=== PATIENT | female | born 1945 | race Caucasian/White ===

== ENCOUNTER 2020-04-17 16:18 | Observation (INO) | payer MEDICARE, OTHER ==
[~2020-04-17] VITALS: Ht 167.6 cm; Wt 74.4 kg
[2020-04-17 17:20] LABS: BASO % 0 % (0-3); EOS # 0.1 x10^3/uL (0.0-0.7); EOS % 2 % (0-3); HEMATOCRIT 44.9 % (36.0-47.0); HEMOGLOBIN 15.1 g/dL (12.0-15.5); LYMPH # 1.3 x10^3/uL (1.0-4.8); LYMPH % 22 % (24-48); MEAN CORPUSCULAR HEMOGLOBIN 30 pg (25-35); MEAN CORPUSCULAR HGB CONC 34 g/dL (31-37); MEAN CORPUSCULAR VOLUME 88 fL (79-100); MONO # 0.5 x10^3/uL (0.0-1.1); MONO % 9 % (0-9); NEUT % 67 % (31-73); PLATELET COUNT 212 x10^3/uL (140-400); RED BLOOD COUNT 5.08 x10^6/uL (3.50-5.40); RED CELL DISTRIBUTION WIDTH 13.3 % (11.5-14.5)
[2020-04-17 17:29] LABS: CALCIUM 10.4 mg/dL (8.5-10.1); CREATININE 0.6 mg/dL (0.6-1.0); GFR 98.3; POTASSIUM 4.2 mmol/L (3.5-5.1)
[2020-04-17 17:34] LABS: ALBUMIN 4.2 g/dL (3.4-5.0); ALBUMIN/GLOBULIN RATIO 1.3 (1.0-1.7); MAGNESIUM 2.1 mg/dL (1.8-2.4); TOTAL BILIRUBIN 0.4 mg/dL (0.2-1.0); TOTAL PROTEIN 7.4 g/dL (6.4-8.2)
--- NOTE | 2020-04-17 18:02 | RAD ---
Examination: CT HEAD/BRAIN WO History: Reason: near syncope, dizzy / Spl. Instructions: / History: Comparison/Correlation: None Findings: Axial images of the head were obtained without contrast. Ventricles are normal size. No int racranial hemorrhage, midline shift, or mass effect. Bony structures are unremarkable. Orbits are mos tly visualized and unremarkable. Impression: No suspicious process. PQRS Compliance Statement: One or more of the following individualized dose reduction techniques were utilized for this examinat ion: 1. Automated exposure control 2. Adjustment of the mA and/or kV according to patient size 3. Use of iterative reconstruction technique Electronically signed by: Kory Morales MD (04/17/2020 6:00 PM) [id number]
[2020-04-17] MEDS ORDERED: ONDANSETRON PF 4 MG/2 ML VIAL. IV ONE (18:15)
[2020-04-17] MEDS ORDERED: FAMOTIDINE 20 MG/2 ML VIAL IVP ONE (18:15)
--- NOTE | 2020-04-17 18:21 | ED.ADGEN ---
Past Medical History Past Medical History: Arthritis, GERD Additional Past Medical Histor: osteoporosis, eczema, Past Surgical History: Other Additional Past Surgical Histo: hip surgery, bladder sling, Smoking Status: Former Smoker Alcohol Use: Occasionally General Adult EDM: Chief Complaint: SYNCOPE HPI: HPI: Patient is a 74 year old female, currently accompanied by her , who presents to the emergency room via EMS with complaints of having problems with her GERD for the last 3 days and a syncopal episode this afternoon. Patient reports that she had been feeling dizzy this afternoon when she got up to the bathroom and she passed out. Patient's reports that the patient hit her head on the wall and had a brief loss of consciousness that was less than 30 seconds. Patient denies any chest pain, palpitations, diarrhea, numbness, tingling, weakness, cough, shortness of breath, fever, sore throat, dysuria, increased urinary frequency, or hematuria. She does report some nausea and states that she vomited once today while with EMS. She currently complains of a frontal headache that she rates a 2 out of 10 on the pain scale, she denies any alleviating or exacerbating factors. Patient states that yesterday her GERD symptoms were burning in her stomach but today she began to have more of a substernal burning sensation. She reports that she does have significant cardiac family history. Review of Systems: Review of Systems: Complete ROS is negative unless otherwise noted in HPI. Current Medications: Current Medications Medications (Trade) Dose Ordered Sig/Wali Start Time Stop Time Status Last Admin Dose Admin Famotidine (Pepcid Vial) 20 mg 1X ONCE 04/17/20 18:15 04/17/20 18:16 DC 04/17/20 18:15 20 MG Ondansetron HCl (Zofran) 4 mg 1X ONCE 04/17/20 18:15 04/17/20 18:16 DC Allergies: Allergies: Allergies Coded Allergies Type Severity Reaction Last Updated Verified Sulfa (Sulfonamide Antibiotics) Allergy Intermediate 04/17/20 Yes oxycodone Allergy Intermediate 04/17/20 Yes Physical Exam: PE: See Above Constitutional: Well developed, well nourished, no acute distress, non-toxic appearance. [] HENT: Normocephalic, atraumatic, bilateral external ears normal, nose normal. [] Eyes: PERRLA, EOMI, conjunctiva normal, no discharge. [] Neck: Normal range of motion, no stridor. [] Cardiovascular:Heart rate regular rhythm Lungs & Thorax: Respirations even and unlabored, no retractions, no respiratory distress Abdomen: soft, no tenderness, no masses, no pulsatile masses. [] Skin: Warm, dry, no erythema, no rash. [] Back: No tenderness Extremities: No cyanosis, no clubbing, ROM intact, no edema. [] Neurologic: Alert and oriented X 3, no focal deficits noted. [] Psychologic: Affect normal, judgement normal, mood normal. [] Current Patient Data: Labs: Laboratory Tests Test 04/17/20 16:50 White Blood Count 6.0 x10^3/uL (4.0-11.0) Red Blood Count 5.08 x10^6/uL (3.50-5.40) Hemoglobin 15.1 g/dL (12.0-15.5) Hematocrit 44.9 % (36.0-47.0) Mean Corpuscular Volume 88 fL (79-100) Mean Corpuscular Hemoglobin 30 pg (25-35) Mean Corpuscular Hemoglobin Concent 34 g/dL (31-37) Red Cell Distribution Width 13.3 % (11.5-14.5) Platelet Count 212 x10^3/uL (140-400) Neutrophils (%) (Auto) 67 % (31-73) Lymphocytes (%) (Auto) 22 % (24-48) L Monocytes (%) (Auto) 9 % (0-9) Eosinophils (%) (Auto) 2 % (0-3) Basophils (%) (Auto) 0 % (0-3) Neutrophils # (Auto) 4.0 x10^3/uL (1.8-7.7) Lymphocytes # (Auto) 1.3 x10^3/uL (1.0-4.8) Monocytes # (Auto) 0.5 x10^3/uL (0.0-1.1) Eosinophils # (Auto) 0.1 x10^3/uL (0.0-0.7) Basophils # (Auto) 0.0 x10^3/uL (0.0-0.2) Sodium Level 140 mmol/L (136-145) Potassium Level 4.2 mmol/L (3.5-5.1) Chloride Level 102 mmol/L (98-107) Carbon Dioxide Level 27 mmol/L (21-32) Anion Gap 11 (6-14) Blood Urea Nitrogen 18 mg/dL (7-20) Creatinine 0.6 mg/dL (0.6-1.0) Estimated GFR (Cockcroft-Gault) 98.3 BUN/Creatinine Ratio 30 (6-20) H Glucose Level 99 mg/dL (70-99) Calcium Level 10.4 mg/dL (8.5-10.1) H Magnesium Level 2.1 mg/dL (1.8-2.4) Total Bilirubin 0.4 mg/dL (0.2-1.0) Aspartate Amino Transferase (AST) 22 U/L (15-37) Alanine Aminotransferase (ALT) 44 U/L (14-59) Alkaline Phosphatase 67 U/L (46-116) Creatine Kinase 80 U/L (26-192) Creatine Kinase MB (Mass) 0.8 ng/mL (0.0-3.6) Creatine Kinase MB Relative Index 1.0 % (0-4) Troponin I Quantitative < 0.017 ng/mL (0.000-0.055) Total Protein 7.4 g/dL (6.4-8.2) Albumin 4.2 g/dL (3.4-5.0) Albumin/Globulin Ratio 1.3 (1.0-1.7) Laboratory Tests 04/17/20 16:50 Laboratory Tests 04/17/20 16:50 Vital Signs: Vital Signs Date Time Temp Pulse Resp B/P (MAP) Pulse Ox O2 Delivery O2 Flow Rate FiO2 04/17/20 18:19 71 122/60 (80) 95 Room Air 04/17/20 16:30 98.1 16 98.1 EKG: EK-sinus rhythm, rate 69, no STEMI, read by Dr. Hernandez [] Heart Score: HEART Score for Chest Pain: HEART Score for Chest Pain Response (Comments) Value History Moderately Suspicious 1 ECG Normal 0 Age > 65 2 Risk Factors 1 or 2 Risk Factors 1 Troponin < Normal Limit 0 Total 4 Risk Factors: Risk Factors: DM, Current or recent (<one month) smoker, HTN, HLP, family history of CAD, obesity. Risk Scores: Score 0 - 3: 2.5% MACE over next 6 weeks - Discharge Home Score 4 - 6: 20.3% MACE over next 6 weeks - Admit for Clinical Observation Score 7 - 10: 72.7% MACE over next 6 weeks - Early Invasive Strategies Radiology/Procedures: Radiology/Procedures: PROCEDURE: CT HEAD WO CONTRAST Examination: CT HEAD/BRAIN WO History: Reason: near syncope, dizzy / Spl. Instructions: / History: Comparison/Correlation: None Findings: Axial images of the head were obtained without contrast. Ventricles are normal size. No intracranial hemorrhage, midline shift, or mass effect. Bony structures are unremarkable. Orbits are mostly visualized and unremarkable. Impression: No suspicious process. PROCEDURE: CHEST AP ONLY EXAM: Chest, single view. HISTORY: Syncope. COMPARISON: None. FINDINGS: Frontal views of the chest are obtained. There is no infiltrate, pleur al effusion or pneumothorax. The heart is normal in size. There are calcified right hilar granulomas. IMPRESSION: No acute pulmonary finding. [] Course & Med Decision Making: Course & Med Decision Making Pertinent Labs and Imaging studies reviewed. (See chart for details) 1900-spoke with Dr. Peace who is the admitting physician, and care was assumed following discussion of patient. Will admit patient for chest pain and syncopal episode as observation status. Patient's vital signs stable. Patient remains afebrile, appears nontoxic, respirations even and unlabored. Patient will be admitted to the CVC floor. Patient's case and plan of care also discussed with Dr. Hernandez [] Bar Disclaimer: Bar Disclaimer: This electronic medical record was generated, in whole or in part, using a voice recognition dictation system. Departure Departure Impression: Primary Impression: Episode of syncope Additional Impression: Chest pain Disposition: 09 ADMITTED INPT THIS HOSP Admitting Physician: SAMINA (KAEL) Condition: STABLE Referrals: UNKNOWN PCP NAME (PCP) Problem Qualifiers Primary Impression: Episode of syncope Syncope type: unspecified Qualified Codes: R55 - Syncope and collapse Additional Impression: Chest pain Chest pain type: unspecified Qualified Codes: R07.9 - Chest pain, unspecified KIRILL NOBLE OVERSEAMER Apr 17, 2020 18:21
--- NOTE | 2020-04-17 19:39 | RAD ---
EXAM: Chest, single view. HISTORY: Syncope. COMPARISON: None. FINDINGS: Frontal views of the chest are obtained. There is no infiltrate, pleural effusion or pneumo thorax. The heart is normal in size. There are calcified right hilar granulomas. IMPRESSION: No acute pulmonary finding. Electronically signed by: Abigail Garcia MD (04/17/2020 7:36 PM) [facility]
[2020-04-17 21:02] LABS: BILIRUBIN,URINE NEGATIVE (NEG); CLARITY,URINE CLOUDY; COLOR,URINE YELLOW; NITRITE,URINE NEGATIVE (NEG); PROTEIN,URINE NEGATIVE (NEG-TRACE); UROBILINOGEN,URINE 0.2 mg/dL (0.2 mg/dL)
[2020-04-17 21:12] LABS: AMORPHOUS SEDIMENT,UR PRESENT /HPF; BACTERIA,URINE MODERATE /HPF (0-FEW)
[2020-04-17 22:23] VITALS: BP 155/75
[2020-04-17] MEDS ORDERED: ZIPRASIDONE IM 20 MG VIAL. IM ONE (22:30)
[2020-04-17] MEDS ORDERED: cefTRIAXone IV Push 1 GM VIAL. IVP SCH (23:00)
[2020-04-17] MEDS ORDERED: ACETAMINOPHEN 325 MG TABLET. PO PRN (23:30)
[2020-04-17] MEDS ORDERED: ONDANSETRON PF 4 MG/2 ML VIAL. IVP PRN (23:30)
[2020-04-18] VITALS (8 sets, daily range): BP systolic 110–166; BP diastolic 53–73
--- NOTE | 2020-04-18 07:44 | EKG ---
[address] [place] [address] Test Date: 2020-04-17 Test Time: 17:57:17 Pat Name: IRWIN PAINTER Department: Room: 210 Gender: F Parts Cataloger: : 1945 Requested By: KIRILL NOBLE Order Number: [id number] Reading MD: Dennys Edmondson Measurements Intervals [place] Rate: 69 P: -26 MN: 160 QRS: 17 QRSD: 96 T: 25 QT: 420 QTc: 452 Interpretive Statements SINUS RHYTHM Electronically Signed On 04-20-2020 13:52:08 FIRE REGULATOR by Dennys Edmondson
[2020-04-18 09:08] LABS: CHOLESTEROL/HDL RATIO 2.4
--- NOTE | 2020-04-18 11:09 | PDOC1 ---
History and Physical Date of Admission Date of Admission DATE: 04/18/20 TIME: 11:09 Identification/Chief Complaint Chief Complaint SEEN IN ER WITH SYNCOPE, VASOVAGAL SYMPTOMS 74 year old female, currently accompanied by her , who presents to the emergency room via EMS with complaints of having problems with her GERD for the last 3 days and a syncopal episode this afternoon. Patient reports that she had been feeling dizzy this afternoon when she got up to the bathroom and she passed out. X SECONDS, NO SEIZURE ACTIVITY NOTED BY , NO POSTICTAL CONFUSION, DID NOT BITE TONGUE Patient's reports that the patient hit her head on the wall and had a brief loss of consciousness that was less than 30 seconds. Patient denies any chest pain, palpitations, diarrhea, numbness, tingling, weakness, cough, shortness of breath, fever, sore throat, dysuria, increased urinary frequency, or hematuria. does report some nausea and states that she vomited once today while with EMS. She currently complains of a frontal headache that she rates a 2 out of 10 on the pain scale, she denies any alleviating or exacerbating factors. ON 04-16 her GERD symptoms were burning in her stomach but today she began to have more of a substernal burning sensation., DENIES NUMBNESSS OR PARESTHESIA QTC in er 452 Past Medical History Past Medical History Past Medical History Past Medical History Past Medical History: Arthritis, GERD Additional Past Medical Histor: osteoporosis, eczema, Past Surgical History: Other Additional Past Surgical Histo: hip surgery, bladder sling, Smoking Status: Former Smoker Alcohol Use: Occasionally FHX COPD Cardiovascular: No pertinent hx, Hyperlipidemia Rheumatologic: Other (ARTHRITIS) Endocrine: No pertinent hx Dermatology: No pertinent hx Family History Family History: Hypertension, Stroke (COUSIN ) Social History Smoke: Quit ALCOHOL: social Drugs: None Current Problem List Problem List Problems Medical Problems: (1) Chest pain Status: Acute (2) Episode of syncope Status: Acute (3) Overdose Status: Acute (4) Suicidal ideations Status: Acute Current Medications Current Medications Current Medications Ondansetron HCl (Zofran) 4 mg 1X ONCE IV ; Start 04/17/20 at 18:15; Stop 04/17/20 at 18:16; Status DC Famotidine (Pepcid Vial) 20 mg 1X ONCE IVP Last administered on 04/17/20at 18:15; Start 04/17/20 at 18:15; Stop 04/17/20 at 18:16; Status DC Ziprasidone (Geodon Im) 10 mg 1X ONCE IM ; Start 04/17/20 at 22:30; Stop 04/17/20 at 22:31; Status Cancel Ceftriaxone Sodium (Rocephin) 1 gm Q24H IVP Last administered on 04/17/20at 23:16; Start 04/17/20 at 23:00 Acetaminophen (Tylenol) 650 mg PRN Q6HRS PRN PO MILD PAIN / TEMP > 100.3'F Last administered on 04/17/20at 23:40; Start 04/17/20 at 23:30 Ondansetron HCl (Zofran) 4 mg PRN Q6HRS PRN IVP NAUSEA/VOMITING 1ST CHOICE; St art 04/17/20 at 23:30 Allergies Allergies: Coded Allergies: Sulfa (Sulfonamide Antibiotics) (Verified Allergy, Intermediate, 04/17/20) methadone (Verified Allergy, Intermediate, 04/18/20) oxycodone (Verified Allergy, Intermediate, 04/17/20) ROS Review of System 14 PT ROS OTHERWISE NEG General: No: Chills, Night Sweats, Fatigue, Malaise, Appetite, Other PSYCHOLOGICAL ROS: No: Anxiety, Behavioral Disorder, Concentration difficultie, Decreased libido, Depression, Disorientation, Hallucinations, Hostility, Irritablity, Memory difficulties, Mood Swings, Obsessive thoughts, Physical abuse, Sexual abuse, Sleep disturbances, Suicidal ideation, Other Eyes: No Blurry vision, No Decreased vision, No Double vision, No Dry eyes, No Excessive tearing, No Eye Pain, No Itchy Eyes, No Loss of vision, No Photophobia, No Scotomata, No Uses contacts, No Uses glasses, No Other HEENT: No: Heacaches, Visual Changes, Hearing change, Nasal congestion, Nasal discharge, Oral lesions, Sinus pain, Sore Throat, Epistaxis, Sneezing, Snoring, Tinnitus, Vertigo, Vocal changes, Other Hematological and Lymphatic: No: Bleeding Problems, Blood Clots, Blood Transfusions, Brusing, Night Sweats, Pallor, Swollen Lymph Nodes, Other Respiratory: No: Cough, Hemoptysis, Orthopnea, Pleuritic Pain, Shortness of breath, SOB with excertion, Sputum Changes, Stridor, Tachypnea, Wheezing, Other Cardiovascular: No Chest Pain, No Palpitations, No Orthopnea, No Paroxysmal Noc. Dyspnea, No Edema, No Lt Headedness, No Other Gastrointestinal: Yes Nausea, Yes Vomiting Genitourinary: No Dysuria, No Frequency, No Incontinence, No Hematuria, No Retention, No Discharge, No Urgency, No Pain, No Flank Pain, No Other, No , No , No , No , No , No , No Neurological: No Behavorial Changes, No Bowel/Bladder ControlChng, No Confusion, No Dizziness, No Gait Disturbance, No Headaches, No Impaired Coord/balance, No Memory Loss, No Numbness/Tingling, No Seizures, No Speech Problems, No Tremors, No Visual Changes, No Weakness, No Other Skin: No Dry Skin, No Eczema, No Hair Changes, No Lumps, No Mole Changes, No Mottling, No Nail Changes, No Pruritus, No Rash, No Skin Lesion Changes, No Other, No Acne Physical Exam Physical Exam Constitutional: Well developed, well nourished, no acute distress, non-toxic appearance. [] HENT: Normocephalic, atraumatic, bilateral external ears normal, nose normal. [] Eyes: PERRLA, EOMI, conjunctiva normal, no discharge. [] Neck: Normal range of motion, no stridor. [] Cardiovascular:Heart rate regular rhythm Lungs & Thorax: Respirations even and unlabored, no retractions, no respiratory distress Abdomen: soft, no tenderness, no masses, no pulsatile masses. [] Skin: Warm, dry, no erythema, no rash. [] Back: No tenderness Extremities: No cyanosis, no clubbing, ROM intact, no edema. [] Neurologic: Alert and oriented X 3, no focal deficits noted. [] Psychologic: Affect normal, judgment normal, mood normal. [ General: Alert, Oriented X3, Cooperative, No acute distress HEENT: Atraumatic, EOMI, Mucous membr. moist/pink Heart: RRR Breasts: Not examined Abdomen: Normal bowel sounds, Soft Rectal Exam: not examined Extremities: No cyanosis, No edema Skin: No significant lesion Neuro: Normal speech, Cranial nerves 3-12 NL Psych/Mental Status: Mental status NL, Mood NL Vitals Vitals Vital Signs Date Time Temp Pulse Resp B/P (MAP) Pulse Ox O2 Delivery O2 Flow Rate FiO2 04/18/20 07:00 97.9 70 16 145/62 (89) 95 Room Air 97.9 Labs Labs Laboratory Tests Test 04/17/20 16:50 04/17/20 20:56 04/18/20 02:00 04/18/20 06:15 White Blood Count 6.0 x10^3/uL (4.0-11.0) Red Blood Count 5.08 x10^6/uL (3.50-5.40) Hemoglobin 15.1 g/dL (12.0-15.5) Hematocrit 44.9 % (36.0-47.0) Mean Corpuscular Volume 88 fL (79-100) Mean Corpuscular Hemoglobin 30 pg (25-35) Mean Corpuscular Hemoglobin Concent 34 g/dL (31-37) Red Cell Distribution Width 13.3 % (11.5-14.5) Platelet Count 212 x10^3/uL (140-400) Neutrophils (%) (Auto) 67 % (31-73) Lymphocytes (%) (Auto) 22 % (24-48) Monocytes (%) (Auto) 9 % (0-9) Eosinophils (%) (Auto) 2 % (0-3) Basophils (%) (Auto) 0 % (0-3) Neutrophils # (Auto) 4.0 x10^3/uL (1.8-7.7) Lymphocytes # (Auto) 1.3 x10^3/uL (1.0-4.8) Monocytes # (Auto) 0.5 x10^3/uL (0.0-1.1) Eosinophils # (Auto) 0.1 x10^3/uL (0.0-0.7) Basophils # (Auto) 0.0 x10^3/uL (0.0-0.2) Sodium Level 140 mmol/L (136-145) Potassium Level 4.2 mmol/L (3.5-5.1) Chloride Level 102 mmol/L (98-107) Carbon Dioxide Level 27 mmol/L (21-32) Anion Gap 11 (6-14) Blood Urea Nitrogen 18 mg/dL (7-20) Creatinine 0.6 mg/dL (0.6-1.0) Estimated GFR (Cockcroft-Gault) 98.3 BUN/Creatinine Ratio 30 (6-20) Glucose Level 99 mg/dL (70-99) Calcium Level 10.4 mg/dL (8.5-10.1) Magnesium Level 2.1 mg/dL (1.8-2.4) Total Bilirubin 0.4 mg/dL (0.2-1.0) Aspartate Amino Transf (AST/SGOT) 22 U/L (15-37) Alanine Aminotransferase (ALT/SGPT) 44 U/L (14-59) Alkaline Phosphatase 67 U/L (46-116) Creatine Kinase 80 U/L (26-192) Creatine Kinase MB (Mass) 0.8 ng/mL (0.0-3.6) Creatine Kinase MB Relative Index 1.0 % (0-4) Troponin I Quantitative < 0.017 ng/mL (0.000-0.055) < 0.017 ng/mL (0.000-0.055) < 0.017 ng/mL (0.000-0.055) Total Protein 7.4 g/dL (6.4-8.2) Albumin 4.2 g/dL (3.4-5.0) Albumin/Globulin Ratio 1.3 (1.0-1.7) Urine Collection Type Unknown Urine Color Yellow Urine Clarity Cloudy Urine pH 7.0 (<5.0-8.0) Urine Specific [place] 1.015 (1.000-1.030) Urine Protein Negative mg/dL (NEG-TRACE) Urine Glucose (UA) Negative mg/dL (NEG) Urine Ketones (Stick) Negative mg/dL (NEG) Urine Blood Negative (NEG) Urine Nitrite Negative (NEG) Urine Bilirubin Negative (NEG) Urine Urobilinogen Dipstick 0.2 mg/dL (0.2 mg/dL) Urine Leukocyte Esterase Moderate (NEG) Urine RBC 3-5 /HPF (0-2) Urine WBC 5-10 /HPF (0-4) Urine Squamous Epithelial Cells Mod /LPF Urine Amorphous Sediment Present /HPF Urine Bacteria Moderate /HPF (0-FEW) Urine Mucus Mod /LPF Triglycerides Level 102 mg/dL (0-150) Cholesterol Level 232 mg/dL (0-200) LDL Cholesterol, Calculated 116 mg/dL (0-100) VLDL Cholesterol, Calculated 20 mg/dL (0-40) Non-HDL Cholesterol Calculated 136 mg/dL (0-129) HDL Cholesterol 96 mg/dL (40-60) Cholesterol/HDL Ratio 2.4 Laboratory Tests Test 04/17/20 16:50 04/17/20 20:56 04/18/20 02:00 04/18/20 06:15 White Blood Count 6.0 x10^3/uL (4.0-11.0) Red Blood Count 5.08 x10^6/uL (3.50-5.40) Hemoglobin 15.1 g/dL (12.0-15.5) Hematocrit 44.9 % (36.0-47.0) Mean Corpuscular Volume 88 fL (79-100) Mean Corpuscular Hemoglobin 30 pg (25-35) Mean Corpuscular Hemoglobin Concent 34 g/dL (31-37) Red Cell Distribution Width 13.3 % (11.5-14.5) Platelet Count 212 x10^3/uL (140-400) Neutrophils (%) (Auto) 67 % (31-73) Lymphocytes (%) (Auto) 22 % (24-48) Monocytes (%) (Auto) 9 % (0-9) Eosinophils (%) (Auto) 2 % (0-3) Basophils (%) (Auto) 0 % (0-3) Neutrophils # (Auto) 4.0 x10^3/uL (1.8-7.7) Lymphocytes # (Auto) 1.3 x10^3/uL (1.0-4.8) Monocytes # (Auto) 0.5 x10^3/uL (0.0-1.1) Eosinophils # (Auto) 0.1 x10^3/uL (0.0-0.7) Basophils # (Auto) 0.0 x10^3/uL (0.0-0.2) Sodium Level 140 mmol/L (136-145) Potassium Level 4.2 mmol/L (3.5-5.1) Chloride Level 102 mmol/L (98-107) Carbon Dioxide Level 27 mmol/L (21-32) Anion Gap 11 (6-14) Blood Urea Nitrogen 18 mg/dL (7-20) Creatinine 0.6 mg/dL (0.6-1.0) Estimated GFR (Cockcroft-Gault) 98.3 BUN/Creatinine Ratio 30 (6-20) Glucose Level 99 mg/dL (70-99) Calcium Level 10.4 mg/dL (8.5-10.1) Magnesium Level 2.1 mg/dL (1.8-2.4) Total Bilirubin 0.4 mg/dL (0.2-1.0) Aspartate Amino Transf (AST/SGOT) 22 U/L (15-37) Alanine Aminotransferase (ALT/SGPT) 44 U/L (14-59) Alkaline Phosphatase 67 U/L (46-116) Creatine Kinase 80 U/L (26-192) Creatine Kinase MB (Mass) 0.8 ng/mL (0.0-3.6) Creatine Kinase MB Relative Index 1.0 % (0-4) Troponin I Quantitative < 0.017 ng/mL (0.000-0.055) < 0.017 ng/mL (0.000-0.055) < 0.017 ng/mL (0.000-0.055) Total Protein 7.4 g/dL (6.4-8.2) Albumin 4.2 g/dL (3.4-5.0) Albumin/Globulin Ratio 1.3 (1.0-1.7) Urine Collection Type Unknown Urine Color Yellow Urine Clarity Cloudy Urine pH 7.0 (<5.0-8.0) Urine Specific [place] 1.015 (1.000-1.030) Urine Protein Negative mg/dL (NEG-TRACE) Urine Glucose (UA) Negative mg/dL (NEG) Urine Ketones (Stick) Negative mg/dL (NEG) Urine Blood Negative (NEG) Urine Nitrite Negative (NEG) Urine Bilirubin Negative (NEG) Urine Urobilinogen Dipstick 0.2 mg/dL (0.2 mg/dL) Urine Leukocyte Esterase Moderate (NEG) Urine RBC 3-5 /HPF (0-2) Urine WBC 5-10 /HPF (0-4) Urine Squamous Epithelial Cells Mod /LPF Urine Amorphous Sediment Present /HPF Urine Bacteria Moderate /HPF (0-FEW) Urine Mucus Mod /LPF Triglycerides Level 102 mg/dL (0-150) Cholesterol Level 232 mg/dL (0-200) LDL Cholesterol, Calculated 116 mg/dL (0-100) VLDL Cholesterol, Calculated 20 mg/dL (0-40) Non-HDL Cholesterol Calculated 136 mg/dL (0-129) HDL Cholesterol 96 mg/dL (40-60) Cholesterol/HDL Ratio 2.4 Images Images PATIENT: IRWIN PAINTER ACCOUNT: [id number] : 1945 LOCATION: ER AGE: 74 SEX: F EXAM STATUS: REG ER ORD. PHYSICIAN: KIRILL NOBLE APRN REASON: near syncope, dizzy PROCEDURE: CT HEAD WO CONTRAST Examination: CT HEAD/BRAIN WO History: Reason: near syncope, dizzy / Spl. Instructions: / History: Comparison/Correlation: None Findings: Axial images of the head were obtained without contrast. Ventricles are normal size. No intracranial hemorrhage, midline shift, or mass effect. Bony structures are unremarkable. Orbits are mostly visualized and unremarkable. Impression: No suspicious process. RS Compliance Statement: One or more of the following individualized dose reduction techniques were utilized for this examination: 1. Automated exposure control 2. Adjustment of the mA and/or kV according to patient size 3. Use of iterative reconstruction technique Electronically signed by: Kory Buenrostro MD (04/17/2020 6:00 PM) [id number] DICTATED and SIGNED BY: KORY BUENROSTRO MD DATE: 04/17/[id number] 0 PATIENT: IRWIN PAINTER ACCOUNT: [id number] : 1945 LOCATION: ER AGE: 74 SEX: F EXAM STATUS: REG ER ORD. PHYSICIAN: KIRILL NOBLE APRN REASON: syncopal episode PROCEDURE: CHEST AP ONLY EXAM: Chest, single view. HISTORY: Syncope. COMPARISON: None. FINDINGS: Frontal views of the chest are obtained. There is no infiltrate, pleural effusion or pneumothorax. The heart is normal in size. There are calcified right hilar granulomas. IMPRESSION: No acute pulmonary finding. Electronically signed by: Abigail Meza MD (04/17/2020 7:36 PM) [facility] DICTATED and SIGNED BY: ABIGAIL MEZA MD DATE: 04/17/[id number] 0 VTE Prophylaxis Ordered VTE Prophylaxis Devices: No VTE Pharmacological Prophylaxi: Yes Assessment/Plan Assessment/Plan Impression: Episode of syncope, VASOVAGAL r/o torsade GERD OSTEOARTHRITIS Chest pain HYPERLIPIDEMIA ON STATIN remote tobacco use PLAN ADMITTED ORTHOSTATICS CONSULT CARDIOLOGY rec 48 hr holter ekg now monitor overnight INTERACTION OF HYDROXYCHOLRAQUINE AND STATIN CAN CAUSE PROLONGED QTC , REC HOLTER MONITOR D/W RN Justifications for Admission Other Justification LE SCRUGGS MD Apr 18, 2020 11:09
[2020-04-18] MEDS ORDERED: ASPI81TA59 PO (12:24)
[2020-04-18] MEDS ORDERED: PRAV40TA2 PO (12:24)
[2020-04-18] MEDS ORDERED: HYDR200T5 PO (12:24)
[2020-04-18] MEDS: cefTRIAXone IV Push 1 GM VIAL. IVP SCH (16:52)
--- NOTE | 2020-04-18 16:55 | PDOC2 ---
CONSULT Date of Consult Date of Consult DATE: 04/18/20 TIME: 16:49 Reason for Consult Reason for Consult: Syncope Referring Physician Referring Physician: Dr. Peace Identification/Chief Complaint Chief Complaint Passing out Source Source: Chart review, Patient History of Present Illness Reason for Visit: The patient is a 74-year-old female who was admitted through the emergency room last evening due to an episode of syncope. The patient reports episodes of dizziness and then when standing she lost consciousness. Her was present and he stated that her loss of consciousness was less than 30 seconds. Work-up has shown a CT head scan with no acute changes and a chest x-ray with no acute findings. Troponin has been negative x4. EKG shows a sinus rhythm without ischemic changes. The patient reported episodes of gastroesophageal reflux disease which is a chronic problem. This may have been a bit more severe yesterday and extended higher up into the lower chest. At the present time she is alert and oriented in no distress. She reports no history of coronary artery disease, congestive heart failure or cardiac arrhythmias. Past Medical History Cardiovascular: Hyperlipidemia GI: GERD Rheumatologic: Other (ARTHRITIS) Endocrine: No pertinent hx Dermatology: No pertinent hx Past Surgical History Past Surgical History: Total hip replacement, Other (Bladder sling repair) Family History Family History: Hypertension, Stroke (COUSIN ) Social History Quit ALCOHOL: social Drugs: None Current Problem List Problem List Problems Medical Problems: (1) Chest pain Status: Acute (2) Episode of syncope Status: Acute (3) Overdose Status: Acute (4) Suicidal ideations Status: Acute Current Medications Current Medications Current Medications Ondansetron HCl (Zofran) 4 mg 1X ONCE IV ; Start 04/17/20 at 18:15; Stop 04/17/20 at 18:16; Status DC Famotidine (Pepcid Vial) 20 mg 1X ONCE IVP Last administered on 04/17/20at 18:15; Start 04/17/20 at 18:15; Stop 04/17/20 at 18:16; Status DC Ziprasidone (Geodon Im) 10 mg 1X ONCE IM ; Start 04/17/20 at 22:30; Stop 04/17/20 at 22:31; Status Cancel Ceftriaxone Sodium (Rocephin) 1 gm Q24H IVP Last administered on 04/17/20at 23 :16; Start 04/17/20 at 23:00; Stop 04/18/20 at 16:32; Status DC Acetaminophen (Tylenol) 650 mg PRN Q6HRS PRN PO MILD PAIN / TEMP > 100.3'F Last administered on 04/17/20at 23:40; Start 04/17/20 at 23:30 Ondansetron HCl (Zofran) 4 mg PRN Q6HRS PRN IVP NAUSEA/VOMITING 1ST CHOICE; Start 04/17/20 at 23:30 Aspirin (Aspirin Chewable) 81 mg DAILY PO ; Start 04/19/20 at 09:00 Hydroxychloroquine Sulfate (Plaquenil) 200 mg BID PO ; Start 04/18/20 at 21:00 Atorvastatin Calcium (Lipitor) 10 mg QHS PO ; Start 04/18/20 at 21:00 Ceftriaxone Sodium (Rocephin) 1 gm Q24H IVP ; Start 04/18/20 at 17:00 Active Scripts Active Reported Pravastatin Sodium 40 Mg Tablet 1 Tab PO QHS Children's Aspirin (Aspirin) 81 Mg Tab.chew 1 Tab PO DAILY 30 Days Hydroxychloroquine Sulfate 200 Mg Tablet 1 Tab PO BID Allergies Allergies: Coded Allergies: Sulfa (Sulfonamide Antibiotics) (Verified Allergy, Intermediate, 04/17/20) methadone (Verified Allergy, Intermediate, 04/18/20) oxycodone (Verified Allergy, Intermediate, 04/17/20) ROS Cardiovascular: yes Other (Syncopal episode as above) Gastrointestinal: Yes Other (Epigastric discomfort) Physical Exam General: No acute distress HEENT: Atraumatic Lungs: Clear to auscultation Heart: Regular rate Abdomen: Normal bowel sounds Vitals VITALS Vital Signs Date Time Temp Pulse Resp B/P (MAP) Pulse Ox O2 Delivery O2 Flow Rate FiO2 04/18/20 15:06 71 127/68 (87) 04/18/20 15:00 98.1 16 97 Room Air 98.1 Labs Labs Laboratory Tests Test 04/17/20 16:50 04/17/20 20:56 04/18/20 02:00 04/18/20 06:15 White Blood Count 6.0 x10^3/uL (4.0-11.0) Red Blood Count 5.08 x10^6/uL (3.50-5.40) Hemoglobin 15.1 g/dL (12.0-15.5) Hematocrit 44.9 % (36.0-47.0) Mean Corpuscular Volume 88 fL (79-100) Mean Corpuscular Hemoglobin 30 pg (25-35) Mean Corpuscular Hemoglobin Concent 34 g/dL (31-37) Red Cell Distribution Width 13.3 % (11.5-14.5) Platelet Count 212 x10^3/uL (140-400) Neutrophils (%) (Auto) 67 % (31-73) Lymphocytes (%) (Auto) 22 % (24-48) Monocytes (%) (Auto) 9 % (0-9) Eosinophils (%) (Auto) 2 % (0-3) Basophils (%) (Auto) 0 % (0-3) Neutrophils # (Auto) 4.0 x10^3/uL (1.8-7.7) Lymphocytes # (Auto) 1.3 x10^3/uL (1.0-4.8) Monocytes # (Auto) 0.5 x10^3/uL (0.0-1.1) Eosinophils # (Auto) 0.1 x10^3/uL (0.0-0.7) Basophils # (Auto) 0.0 x10^3/uL (0.0-0.2) Sodium Level 140 mmol/L (136-145) Potassium Level 4.2 mmol/L (3.5-5.1) Chloride Level 102 mmol/L (98-107) Carbon Dioxide Level 27 mmol/L (21-32) Anion Gap 11 (6-14) Blood Urea Nitrogen 18 mg/dL (7-20) Creatinine 0.6 mg/dL (0.6-1.0) Estimated GFR (Cockcroft-Gault) 98.3 BUN/Creatinine Ratio 30 (6-20) Glucose Level 99 mg/dL (70-99) Calcium Level 10.4 mg/dL (8.5-10.1) Magnesium Level 2.1 mg/dL (1.8-2.4) Total Bilirubin 0.4 mg/dL (0.2-1.0) Aspartate Amino Transf (AST/SGOT) 22 U/L (15-37) Alanine Aminotransferase (ALT/SGPT) 44 U/L (14-59) Alkaline Phosphatase 67 U/L (46-116) Creatine Kinase 80 U/L (26-192) Creatine Kinase MB (Mass) 0.8 ng/mL (0.0-3.6) Creatine Kinase MB Relative Index 1.0 % (0-4) Troponin I Quantitative < 0.017 ng/mL (0.000-0.055) < 0.017 ng/mL (0.000-0.055) < 0.017 ng/mL (0.000-0.055) Total Protein 7.4 g/dL (6.4-8.2) Albumin 4.2 g/dL (3.4-5.0) Albumin/Globulin Ratio 1.3 (1.0-1.7) Urine Collection Type Unknown Urine Color Yellow Urine Clarity Cloudy Urine pH 7.0 (<5.0-8.0) Urine Specific [place] 1.015 (1.000-1.030) Urine Protein Negative mg/dL (NEG-TRACE) Urine Glucose (UA) Negative mg/dL (NEG) Urine Ketones (Stick) Negative mg/dL (NEG) Urine Blood Negative (NEG) Urine Nitrite Negative (NEG) Urine Bilirubin Negative (NEG) Urine Urobilinogen Dipstick 0.2 mg/dL (0.2 mg/dL) Urine Leukocyte Esterase Moderate (NEG) Urine RBC 3-5 /HPF (0-2) Urine WBC 5-10 /HPF (0-4) Urine Squamous Epithelial Cells Mod /LPF Urine Amorphous Sediment Present /HPF Urine Bacteria Moderate /HPF (0-FEW) Urine Mucus Mod /LPF Triglycerides Level 102 mg/dL (0-150) Cholesterol Level 232 mg/dL (0-200) LDL Cholesterol, Calculated 116 mg/dL (0-100) VLDL Cholesterol, Calculated 20 mg/dL (0-40) Non-HDL Cholesterol Calculated 136 mg/dL (0-129) HDL Cholesterol 96 mg/dL (40-60) Cholesterol/HDL Ratio 2.4 Test 04/18/20 12:27 Troponin I Quantitative < 0.017 ng/mL (0.000-0.055) Laboratory Tests Test 04/17/20 16:50 04/17/20 20:56 04/18/20 02:00 04/18/20 06:15 White Blood Count 6.0 x10^3/uL (4.0-11.0) Red Blood Count 5.08 x10^6/uL (3.50-5.40) Hemoglobin 15.1 g/dL (12.0-15.5) Hematocrit 44.9 % (36.0-47.0) Mean Corpuscular Volume 88 fL (79-100) Mean Corpuscular Hemoglobin 30 pg (25-35) Mean Corpuscular Hemoglobin Concent 34 g/dL (31-37) Red Cell Distribution Width 13.3 % (11.5-14.5) Platelet Count 212 x10^3/uL (140-400) Neutrophils (%) (Auto) 67 % (31-73) Lymphocytes (%) (Auto) 22 % (24-48) Monocytes (%) (Auto) 9 % (0-9) Eosinophils (%) (Auto) 2 % (0-3) Basophils (%) (Auto) 0 % (0-3) Neutrophils # (Auto) 4.0 x10^3/uL (1.8-7.7) Lymphocytes # (Auto) 1.3 x10^3/uL (1.0-4.8) Monocytes # (Auto) 0.5 x10^3/uL (0.0-1.1) Eosinophils # (Auto) 0.1 x10^3/uL (0.0-0.7) Basophils # (Auto) 0.0 x10^3/uL (0.0-0.2) Sodium Level 140 mmol/L (136-145) Potassium Level 4.2 mmol/L (3.5-5.1) Chloride Level 102 mmol/L (98-107) Carbon Dioxide Level 27 mmol/L (21-32) Anion Gap 11 (6-14) Blood Urea Nitrogen 18 mg/dL (7-20) Creatinine 0.6 mg/dL (0.6-1.0) Estimated GFR (Cockcroft-Gault) 98.3 BUN/Creatinine Ratio 30 (6-20) Glucose Level 99 mg/dL (70-99) Calcium Level 10.4 mg/dL (8.5-10.1) Magnesium Level 2.1 mg/dL (1.8-2.4) Total Bilirubin 0.4 mg/dL (0.2-1.0) Aspartate Amino Transf (AST/SGOT) 22 U/L (15-37) Alanine Aminotransferase (ALT/SGPT) 44 U/L (14-59) Alkaline Phosphatase 67 U/L (46-116) Creatine Kinase 80 U/L (26-192) Creatine Kinase MB (Mass) 0.8 ng/mL (0.0-3.6) Creatine Kinase MB Relative Index 1.0 % (0-4) Troponin I Quantitative < 0.017 ng/mL (0.000-0.055) < 0.017 ng/mL (0.000-0.055) < 0.017 ng/mL (0.000-0.055) Total Protein 7.4 g/dL (6.4-8.2) Albumin 4.2 g/dL (3.4-5.0) Albumin/Globulin Ratio 1.3 (1.0-1.7) Urine Collection Type Unknown Urine Color Yellow Urine Clarity Cloudy Urine pH 7.0 (<5.0-8.0) Urine Specific [place] 1.015 (1.000-1.030) Urine Protein Negative mg/dL (NEG-TRACE) Urine Glucose (UA) Negative mg/dL (NEG) Urine Ketones (Stick) Negative mg/dL (NEG) Urine Blood Negative (NEG) Urine Nitrite Negative (NEG) Urine Bilirubin Negative (NEG) Urine Urobilinogen Dipstick 0.2 mg/dL (0.2 mg/dL) Urine Leukocyte Esterase Moderate (NEG) Urine RBC 3-5 /HPF (0-2) Urine WBC 5-10 /HPF (0-4) Urine Squamous Epithelial Cells Mod /LPF Urine Amorphous Sediment Present /HPF Urine Bacteria Moderate /HPF (0-FEW) Urine Mucus Mod /LPF Triglycerides Level 102 mg/dL (0-150) Cholesterol Level 232 mg/dL (0-200) LDL Cholesterol, Calculated 116 mg/dL (0-100) VLDL Cholesterol, Calculated 20 mg/dL (0-40) Non-HDL Cholesterol Calculated 136 mg/dL (0-129) HDL Cholesterol 96 mg/dL (40-60) Cholesterol/HDL Ratio 2.4 Test 04/18/20 12:27 Troponin I Quantitative < 0.017 ng/mL (0.000-0.055) Images Images CT scan of the head shows no acute changes. Chest x-ray shows no acute cardiopulmonary processes. Assessment/Plan Assessment/Plan 1. Syncope. Episode as above less than 30 seconds. Rhythm has been stable overnight. The patient denies any previous history of similar episodes. Troponins have been normal x4. EKG shows no ischemic changes. At this time would increase activities. The patient will need an outpatient monitor. She is scheduled to be seen by her primary physician this Sunday. 2. Gastroesophageal reflux disease and lower chest discomfort. As noted above troponins have been normal x4. EKG shows no ischemic changes. We will continue present treatments. Follow-up as an outpatient. Thank you for allowing us to participate in the care of your patient. BERNABE GARCIA MD Apr 18, 2020 16:55
--- NOTE | 2020-04-18 17:00 | EKG ---
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
[2020-04-18] MEDS: LACTOBACILLUS RHAMNOSUS GG 1 CAPSULE. PO SCH (20:04)
[2020-04-18] MEDS: HYDROXYCHLOROQUINE 200 MG TABLET PO SCH (20:04)
--- NOTE | 2020-04-18 20:58 | RAD ---
EXAM: CAROTID DOPPLER SONOGRAM. HISTORY: Syncope, vertigo. TECHNIQUE: Lima scale and color Doppler sonographic evaluation of the neck with spectral waveform yobani lysis was performed and static images are submitted for review. FINDINGS: RIGHT: The peak systolic velocity within the common carotid artery is 92 cm/sec. The peak systolic ve locity within the internal carotid artery is 112 cm/sec and the end diastolic velocity within the int ernal carotid artery is 44 cm/sec. The ICA/CCA ratio is 1.1. Grayscale images demonstrate no grayscal e stenosis. LEFT: The peak systolic velocity within the common carotid artery is 64 cm/sec. The peak systolic musa ocity within the internal carotid artery is 71 cm/sec and the end diastolic velocity within the inter nal carotid artery is 26 cm/sec. The ICA/CCA ratio is 0.9. Grayscale images demonstrate no grayscale stenosis. There is antegrade flow within both vertebral arteries. IMPRESSION: 1. No evidence of hemodynamically significant stenosis. PQRS Compliance Statement - Stenosis calculations for CT, MR and conventional angiography are based u saw measurement of the distal ICA diameter in accordance with the NASCET methodology. Stenosis calcu lations for carotid ultrasound studies are derived from validated velocity criteria which are known t o correlate with the NASCET methodology. Electronically signed by: Abel Cruz MD (04/18/2020 8:55 PM) [facility]
[2020-04-18] MEDS ORDERED: ATORVASTATIN CALCIUM 10 MG TABLET. PO SCH (21:00)
--- NOTE | 2020-04-18 21:57 | EKG ---
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
[2020-04-19] VITALS (7 sets, daily range): BP systolic 108–136; BP diastolic 52–72
[2020-04-19] MEDS ORDERED: ASPIRIN CHEWABLE 81 MG TABLET. PO SCH (09:00)
[2020-04-19] MEDS: HYDROXYCHLOROQUINE 200 MG TABLET PO SCH (09:12)
[2020-04-19] MEDS: LACTOBACILLUS RHAMNOSUS GG 1 CAPSULE. PO SCH (09:12)
--- NOTE | 2020-04-19 12:07 | PDOC ---
[employer] PROGRESS NOTE Date of Service DOS: DATE: 04/19/20 TIME: 11:58 Chief Complaint Chief Complaint Episode of syncope, VASOVAGAL r/o torsade GERD OSTEOARTHRITIS Chest pain HYPERLIPIDEMIA ON STATIN remote tobacco use PLAN ADMITTED ORTHOSTATICS CONSULT CARDIOLOGY rec 48 hr holter ekg now monitor overnight INTERACTION OF HYDROXYCHOLRAQUINE AND STATIN CAN CAUSE PROLONGED QTC , REC HOLTER MONITOR History of Present Illness History of Present Illness SEEN IN ER WITH SYNCOPE, VASOVAGAL SYMPTOMS 74 year old female, currently accompanied by her , who presents to the emergency room via EMS with complaints of having problems with her GERD for the last 3 days and a syncopal episode this afternoon. Patient reports that she had been feeling dizzy this afternoon when she got up to the bathroom and she passed out. X SECONDS, NO SEIZURE ACTIVITY NOTED BY , NO POSTICTAL CONFUSION, DID NOT BITE TONGUE Patient's reports that the patient hit her head on the wall and had a brief loss of consciousness that was less than 30 seconds. Patient denies any chest pain, palpitations, diarrhea, numbness, tingling, weakness, cough, shortness of breath, fever, sore throat, dysuria, increased urinary frequency, or hematuria. does report some nausea and states that she vomited once today while with EMS. She currently complains of a frontal headache that she rates a 2 out of 10 on the pain scale, she denies any alleviating or exacerbating factors. ON 04-16 her GERD symptoms were burning in her stomach but today she began to have more of a substernal burning sensation., DENIES NUMBNESSS OR PARESTHESIA QTC in er 452 04/19: Patient seen and evaluated bedside. Orthostatic vitals and echocardiogram pending today. Discussed with RN and social welfare research worker. Vitals/I&O Vitals/I&O: Vital Signs Date Time Temp Pulse Resp B/P (MAP) Pulse Ox O2 Delivery O2 Flow Rate FiO2 04/19/20 11:00 98.1 71 18 130/72 (91) 97 Room Air 98.1 I & O 04/18/20 04/18/20 04/19/20 15:00 23:00 07:00 Intake Total 418 ml 300 ml 400 ml Output Total 200 ml 300 ml Balance 218 ml 300 ml 100 ml Physical Exam General: No acute distress Heart: Regular rate Abdomen: Normal bowel sounds Extremities: No cyanosis, No edema Skin: No significant lesion Labs Labs: Laboratory Tests Test 04/18/20 12:27 04/19/20 02:00 Troponin I Quantitative < 0.017 ng/mL (0.000-0.055) Ionized Calcium 1.21 mmol/L (1.13-1.32) Assessment and Plan Assessmemt and Plan Problems Medical Problems: (1) Chest pain Status: Acute (2) Episode of syncope Status: Acute (3) Overdose Status: Acute (4) Suicidal ideations Status: Acute Comment Review of Relevant I have reviewed the following items siddharth (where applicable) has been applied. Medications: Current Medications Medications (Trade) Dose Ordered Sig/Wali Route PRN Reason Start Time Stop Time Status Last Admin Dose Admin Aspirin (Aspirin Chewable) 81 mg DAILY PO 04/19/20 09:00 04/19/20 09:12 Hydroxychloroquine Sulfate (Plaquenil) 200 mg BID PO 04/18/20 21:00 04/19/20 09:12 Atorvastatin Calcium (Lipitor) 10 mg QHS PO 04/18/20 21:00 04/18/20 20:04 Ceftriaxone Sodium (Rocephin) 1 gm Q24H IVP 04/18/20 17:00 04/18/20 16:52 Lactobacillus Rhamnosus (Culturelle) 1 cap BID PO 04/18/20 21:00 04/19/20 09:12 Justifications for Admission Other Justification SAMIA AVILA MD Apr 19, 2020 12:07
--- NOTE | 2020-04-19 12:11 | NUR ---
SS following for discharge planning. SS reviewed pt chart and discussed with pt RN. Pt is from home with spouse and is currently on room air. Pt on IV Rocephin. Cardiology following. ECHO ordered. SS will continue to follow for discharge planning.
--- NOTE | 2020-04-19 12:31 | PDOC ---
CARDIO Progress Notes Date and Time Date of Service 04/19/19 Time of Evaluation 1222 Subjective Subjective: No Chest Pain Vitals Vitals Vital Signs Date Time Temp Pulse Resp B/P (MAP) Pulse Ox O2 Delivery O2 Flow Rate FiO2 04/19/20 11:00 98.1 71 18 130/72 (91) 97 Room Air 98.1 Weight Weight [ ] Input and Output Intake and Output Intake and Output 04/19/20 07:00 Intake Total 1118 ml Output Total 500 ml Balance 618 ml Intake Oral 1118 ml Output Urine Total 500 ml # Voids 2 Laboratory Labs Laboratory Tests Test 04/18/20 12:27 04/19/20 02:00 Troponin I Quantitative < 0.017 ng/mL (0.000-0.055) Ionized Calcium 1.21 mmol/L (1.13-1.32) Microbiology Micro Microbiology 04/17/20 Urine Culture - Final, Complete Physical Exam HEENT: Neck Supple W Full Motion Chest: Symmetric LUNGS: Clear to Auscultation Heart: RRR (SR, very brief bursts of NSVT noted ) Abdomen: Soft N/T Extremities: No Edema Neurology: alert, oriented Assessment Assessment 1. Syncopal episode. No acute events on tele. CT head without acute findings. Carotid doppler without flow-limiting stenosis. Orthostatics mildly positive 2. Chest pain, atypical. AMI ruled out. EKG without significant acute changes 3. GERD 4. Hyperlipidemia; LDL 116. satin therapy Recommendations IV fluid bolus due to + orthostasis Echo to assess LV systolic function today Outpatient event monitor as arranged Follow up in our office with Dr. Burch as scheduled. Consider outpatient ischemic evaluation Justicifation of Admission Dx: Justifications for Admission: Justification of Admission Dx: Yes Comments: orthostatic hypotension syncope SORIN MENON APRN Apr 19, 2020 12:30
[2020-04-19] MEDS ORDERED: IV NORMAL SALINE 500ML BAG 500 ML IV ONE (15:30)
--- NOTE | 2020-04-19 16:57 | CARD ---
MR#: [id number] Date of Study: 04/19/2020 Ordering Physician: LE SCRUGGS, Referring Physician: LE SCRUGGS, Tech: Tanisha Rodriguez [facility] APPROVED REPORT EXAM: Two-dimensional and M-mode echocardiogram with Doppler and color Doppler. Other Information Quality : AverageHR: 79bpm Rhythm : NSR INDICATION Syncope RISK FACTORS Hyperlipidemia 2D DIMENSIONS RVDd2.4 (2.9-3.5cm)Left Atrium(2D)3.1 (1.6-4.0cm) IVSd0.7 (0.7-1.1cm)Aortic Root(2D)2.8 (2.0-3.7cm) LVDd4.5 (3.9-5.9cm)LVOT Diameter1.8 (1.8-2.4cm) PWd0.9 (0.7-1.1cm)LVDs2.6 (2.5-4.0cm) FS (%) 41.5 %SV66.9 ml Aortic Valve AoV Peak Weston.125.7cm/sAoV VTI25.5cm AO Peak GR.6.3mmHgLVOT Peak Weston.119.3cm/s AO Mean GR.4mmHgAVA (VMAX)2.53cm2 Mitral Valve MV E Srdzsftn93.2cm/sMV DECEL LXER771mu MV A Akpmqtqr02.6cm/sE/A Ratio0.7 Tricuspid Valve TR P. Cqomkyno816bq/sTR Peak Gr.19mmHg Pulmonary Vein S1 Qcvuksao26.7cm/sD2 Nfvlsozc23.2cm/s LEFT VENTRICLE The left ventricle is normal size. There is mild concentric left ventricular hypertrophy. The left ve ntricular systolic function is mildly hyperdynamic. The ejection fraction is 65-70% There is normal L V segmental wall motion. RIGHT VENTRICLE The right ventricle is normal size. There is normal right ventricular wall thickness. The right ventr icular systolic function is normal. ATRIA The left atrium size is normal. The right atrium size is normal. The interatrial septum is intact wit h no evidence for an atrial septal defect or patent foramen ovale as noted on 2-D or Doppler imaging. AORTIC VALVE The aortic valve is normal in structure and function. Doppler and Color Flow revealed no significant aortic regurgitation. There is no significant aortic valvular stenosis. MITRAL VALVE The mitral valve is normal in structure and function. There is no evidence of mitral valve prolapse. There is no mitral valve stenosis. Doppler and Color-flow revealed mild mitral regurgitation. TRICUSPID VALVE The tricuspid valve is normal in structure and function. Doppler and Color Flow revealed trace tricus pid regurgitation. Estimated PAP 23 mmHg. PULMONIC VALVE The pulmonary valve is normal in structure and function. Doppler and Color Flow revealed trace pulmon ic valvular regurgitation. GREAT VESSELS The aortic root is normal in size. The ascending aorta is normal in size. The pulmonary artery is nor mal. The IVC is normal in size and collapses >50% with inspiration. PERICARDIAL EFFUSION There is no pleural effusion. There is no evidence of significant pericardial effusion. Critical Notification Critical Value: No <Conclusion> The left ventricle is normal size. The left ventricular systolic function is mildly hyperdynamic. The ejection fraction is 65-70% There is mild concentric left ventricular hypertrophy. Doppler and Color Flow revealed no significant aortic regurgitation. There is no significant aortic valvular stenosis. Doppler and Color-flow revealed mild mitral regurgitation. Doppler and Color Flow revealed trace tricuspid regurgitation. Estimated PAP 23 mmHg. Signed by : Darshan Camarena MD Electronically Approved : 04/19/2020 16:57:13
[2020-04-19] MEDS: cefTRIAXone IV Push 1 GM VIAL. IVP SCH (17:00)
--- NOTE | 2020-04-19 17:30 | PDOC3 ---
Discharge Summary Visit Information Date of Admission: Apr 18, 2020 Date of Discharge: Apr 19, 2020 Final Diagnosis Problems Medical Problems: (1) Chest pain Status: Acute (2) Episode of syncope Status: Acute (3) Overdose Status: Acute (4) Suicidal ideations Status: Acute Brief Hospital Course Allergies Allergies Coded Allergies Type Severity Reaction Last Updated Verified Sulfa (Sulfonamide Antibiotics) Allergy Intermediate 04/17/20 Yes methadone Allergy Intermediate 04/18/20 Yes oxycodone Allergy Intermediate 04/17/20 Yes Vital Signs Vital Signs Date Time Temp Pulse Resp B/P (MAP) Pulse Ox O2 Delivery O2 Flow Rate FiO2 04/19/20 15:00 98.0 74 20 108/52 (70) 93 Room Air 98.0 Lab Results Laboratory Tests Test 04/17/20 20:56 04/18/20 02:00 04/18/20 06:15 04/18/20 12:27 Urine Collection Type Unknown Urine Color Yellow Urine Clarity Cloudy Urine pH 7.0 (<5.0-8.0) Urine Specific [place] 1.015 (1.000-1.030) Urine Protein Negative mg/dL (NEG-TRACE) Urine Glucose (UA) Negative mg/dL (NEG) Urine Ketones (Stick) Negative mg/dL (NEG) Urine Blood Negative (NEG) Urine Nitrite Negative (NEG) Urine Bilirubin Negative (NEG) Urine Urobilinogen Dipstick 0.2 mg/dL (0.2 mg/dL) Urine Leukocyte Esterase Moderate (NEG) Urine RBC 3-5 /HPF (0-2) Urine WBC 5-10 /HPF (0-4) Urine Squamous Epithelial Cells Mod /LPF Urine Amorphous Sediment Present /HPF Urine Bacteria Moderate /HPF (0-FEW) Urine Mucus Mod /LPF Troponin I Quantitative < 0.017 ng/mL (0.000-0.055) < 0.017 ng/mL (0.000-0.055) < 0.017 ng/mL (0.000-0.055) Triglycerides Level 102 mg/dL (0-150) Cholesterol Level 232 mg/dL (0-200) LDL Cholesterol, Calculated 116 mg/dL (0-100) VLDL Cholesterol, Calculated 20 mg/dL (0-40) Non-HDL Cholesterol Calculated 136 mg/dL (0-129) HDL Cholesterol 96 mg/dL (40-60) Cholesterol/HDL Ratio 2.4 Test 1/4/21 02:00 Ionized Calcium 1.21 mmol/L (1.13-1.32) Laboratory Tests Test 04/19/20 02:00 Ionized Calcium 1.21 mmol/L (1.13-1.32) Brief Hospital Course Ms. Roberson is a 74 old female who presented with syncopal event. Consultations placed to cardiology. Echocardiogram was obtained with normal left ventricular function. Patient had positive orthostatic vitals. Discussed management of orthostasis at home, stating herself prior to ambulation, and bracing herself when rising from seated or reclined position. Patient was stable for discharge home. Discharge Information Condition at Discharge: Improved Disposition/Orders: D/C to Home Scheduled Aspirin (Children's Aspirin) 81 Mg Tab.chew, 1 TAB PO DAILY for HEART for 30 Days, #30 Ref 0 (Reported) Entered as Reported by: Anthony Acuna on 04/18/201223 Last Action: Continued on 04/18/201615 by LE SCRUGGS MD Hydroxychloroquine Sulfate (Hydroxychloroquine Sulfate) 200 Mg Tablet, 1 TAB PO BID for RA, #180 Ref 1 (Reported) Entered as Reported by: Anthony Acuna on 04/18/201223 Last Action: Continued on 04/18/201615 by LE SCRUGGS MD Pravastatin Sodium (Pravastatin Sodium) 40 Mg Tablet, 1 TAB PO QHS for CHOLESTEROL, #90 Ref 1 (Reported) Entered as Reported by: Anthony Acuna on 04/18/201223 Last Action: Converted on 04/18/201615 by LE SCRUGGS MD Justicifation of Admission Dx: Justifications for Admission: Justification of Admission Dx: Yes SAMIA AVILA MD Apr 19, 2020 17:30
--- NOTE | 2020-04-19 18:19 | NUR ---
Discharge Note: [employer] Discharge instructions and discharge home medications reviewed with Patient and a copy given. All questions have been answered and understanding verbalized. The following instructions and handouts were given: Chest pain, syncope Patient discharged to home with self care via and private vehicle
== END 2020-04-19 18:50 | disposition home or self-care (01) ==
LOC: ER 16:18 → ED HOLD 21:02 → 2 NORTH 21:34
PROVIDERS: ADMIT Family Medicine; ATTEND Family Medicine
DX: R07.89 Other chest pain (principal); R55 Syncope and collapse; R45.851 Suicidal ideations; W22.01XA Walked into wall, initial encounter; T50.901A Poisoning by unspecified drugs, medicaments and biological substances, accidental (unintentional), initial encounter; I95.9 Hypotension, unspecified; M19.90 Unspecified osteoarthritis, unspecified site; M81.0 Age-related osteoporosis without current pathological fracture; K21.9 Gastro-esophageal reflux disease without esophagitis; E78.5 Hyperlipidemia, unspecified; Z79.82 Long term (current) use of aspirin; Z87.891 Personal history of nicotine dependence; Z96.649 Presence of unspecified artificial hip joint; Z98.890 Other specified postprocedural states; Z79.899 Other long term (current) drug therapy
CPT/HCPCS: 36415; 70450; 71045; 80053; 80061; 81001; 82310; 82553; 83735; 84484; 85025; 87086; 93005; 93306; 93880; 96361; 96374; 96375; 96376; 99285; G0378; J0696; J3490; J7040; G0379